=== PATIENT | male | born 1975 ===

== ENCOUNTER 2017-05-04 11:36 | Emergency (ER) | payer OTHER ==
[2017-05-04] MEDS ORDERED: LIDOCAINE HCL 1% MDV SOL SC ONE (12:15)
[2017-05-04] MEDS ORDERED: LIDOCAINE HCL 1% MPF SOL ONE (12:16)
[2017-05-04 12:28] VITALS: RESP 16; TEMP 98.5; O2SAT 96
[2017-05-04 12:40] VITALS: BP 132/78; PULSE 88
== END 2017-05-04 12:40 | disposition home or self-care (01) | DRG 605 ==
LOC: ED 11:36
DX: S61.012A Laceration without foreign body of left thumb without damage to nail, initial encounter (principal); W26.0XXA Contact with knife, initial encounter
CPT/HCPCS: 99282; J2001